=== PATIENT | male | born 1985 | race Caucasian/White ===

== ENCOUNTER 2022-05-07 10:40 | Inpatient (IN) | payer OTHER, MEDICAID, SELFPAY ==
[2022-05-07] VITALS (29 sets, daily range): BP systolic 117–156; BP diastolic 70–99; PULSE 73–106; RESP 17–26; TEMP 36.7–36.9; O2SAT 88–100; BMI 21.5
--- NOTE | 2022-05-07 10:09 | DI.CT.S_ITS ---
PROCEDURE: CT HEAD/BRAIN WO CON INDICATIONS: trauma TECHNIQUE: Noncontrast 4.5 mm thick angled axial sections acquired from the foramen magnum to the vertex, with coronal and sagittal reformats. For radiation dose reduction, the following was used: automated exposure control, adjustment of mA and/or kV according to patient size. COMPARISON: None. FINDINGS: Image quality: Excellent. CSF spaces: Basal cisterns are patent. No extra-axial fluid collections. Ventricles are normal in size and shape. Brain: No midline shift. No intracranial masses or hemorrhage. Villeda-white matter interface is normal. Skull and face: Calvarium and visualized facial bones are intact, without suspicious lesions. Sinuses: Visualized sinuses and mastoids are clear. IMPRESSION: No acute intracranial abnormality. Dictated by: Lv Blue D.O. on 05/07/2022 at 9:34 Approved by: Lv Blue D.O. on 05/07/2022 at 9:38
--- NOTE | 2022-05-07 10:09 | ED.ALCOHOL ---
HPI - Alcohol General Chief Complaint: Toxicology Problem Stated Complaint: seizure Time Seen by Provider: 05/07/22 11:10 History of Present Illness HPI narrative: This 37-year-old man comes in with alcohol related seizure today. He was camping with family and friends on the [facility]. He drink about a gal of hard liquor last night. He had a seizure this morning. He has never had a seizure previously. He says he felt himself shaking at the onset and then lost consciousness. Paramedics were called to the scene and found him to be postictal. He did break the left upper central incisor when he fell. He denies any other injuries. He says he drinks up to 2 gal of hard liquor daily for a very long time. He says it has been years since he went a week without any alcohol. He says he has a history of asthma but requires no current treatments for it. He denies any recent fever, cough, vomiting, melena, abdominal pain or other symptoms. Related Data Home Medications Medication Instructions Recorded Confirmed No Known Home Medications 05/07/22 05/07/22 Review of Systems Review of Systems Narrative: Complete review of systems is negative other than as noted. Patient History Social History Smoking Status: Current every day smoker Exam Narrative Exam Narrative: GENERAL: Alert, cooperative and in no distress. HEAD: Atraumatic. Normocephalic. EYES: Sclera are clear without icterus. Extraocular movements are full. ENT: No rhinorrhea. Oropharynx is moist. Mouth exam is benign. Broken left upper central incisor tooth 9. NECK: Supple. Full range of motion. CARDIOVASCULAR: Normal rate and rhythm without murmur gallop or rub. RESPIRATORY: Clear to auscultation. Breath sounds equal bilaterally. No wheezes, rales, or rhonchi. GASTROINTESTINAL: Abdomen soft, non-tender, nondistended. EXTREMITIES: No edema, full range of motion. No obvious trauma. BACK: Normal inspection, no CVA tenderness. NEURO: Nonfocal examination, normal speech, normal gait. SKIN: No rash or erythema of visible areas PSYCH: Normally oriented. Normal range of affect. Appropriate behavior Initial Vital Signs Initial Vital Signs: Vital Signs Temperature 98.4 F 05/07/22 10:00 Pulse Rate 88 05/07/22 10:00 Respiratory Rate 18 05/07/22 10:00 Blood Pressure 156/97 H 05/07/22 10:00 Pulse Oximetry 99 05/07/22 10:00 Oxygen Delivery Method 05/07/22 10:00 Course Orders Ordered: ED Orders 05/07/22 10:05 CBC Auto Diff [Complete Blood Count AUTO DIFF] Stat CMP [Comprehensive Metabolic Panel] Stat Ethanol (ETOH) Stat Lactate (Lactic Acid) Stat Prothrombin Time INR Stat 05/07/22 10:09 CT head/brain wo con Stat 05/07/22 10:10 COVID19 -Nasal RAPID/Pre-Proc Stat 05/07/22 10:13 EKG-12 Lead Stat Acetaminophen (Acetaminophen 325 Mg Tablet) 650 mg PO Q6HR PRN PRN Reason: Fever/Mild Pain (1-3) Chlordiazepoxide HCl (Chlordiazepoxide 25 Mg Capsule) 50 mg PO Q6HR MELQUIADES Enoxaparin Sodium (Enoxaparin 40 Mg/0.4 Ml Syringe) 40 mg SUBCUT DAILY MELQUIADES Folic Acid (Folic Acid 1 Mg Tablet) 1 mg PO DAILY MELQUIADES Multivitamins (Multivitamin 1 Tablet) 1 tab PO DAILY MELQUIADES Ondansetron HCl (Ondansetron 4 Mg/2 Ml Inj) 4 mg IV Q8HR PRN PRN Reason: Nausea And Vomiting Thiamine HCl (Thiamine 100 Mg Tablet) 100 mg PO DAILY MELQUIADES Stop: 05/11/22 09:01 Discontinued Medications Diazepam (Diazepam 10 Mg/2 Ml Syringe) 10 mg IV Q15MIN PRN PRN Reason: Alcohol Withdrawal Last Admin: 05/07/22 13:13 Dose: 10 mg Documented By: Admin: 05/07/22 10:53 Dose: 10 mg Documented By: MANGO Sodium Chloride (Normal Saline 0.9%) 1,000 mls @ 1,000 mls/hr IV BOLUS ONE Stop: 05/07/22 11:06 Last Infusion: 05/07/22 14:13 Dose: 0 mls/hr Documented By: Admin: 05/07/22 10:57 Dose: 1,000 mls/hr Documented By: MANGO Reevaluation(s) Reevaluation #1: The patient is tolerating diazepam well and this is controlling his symptoms nicely. Will admit for alcohol withdrawal seizure. Will also be admitting for acute alcoholic hepatitis Consultations Consultation #1: Dr. Du agrees to admit Vital Signs Vital signs: Vital Signs - 8 hr 05/07/22 10:00 05/07/22 10:27 05/07/22 10:30 Temperature 98.4 F Pulse Rate 88 87 86 Respiratory Rate 18 20 Blood Pressure 156/97 H Pulse Oximetry 99 88 L 100 Oxygen Delivery Method Room Air Oxygen Flow Rate 05/07/22 10:57 05/07/22 10:57 05/07/22 11:00 Temperature Pulse Rate 89 Respiratory Rate 20 Blood Pressure 139/94 H 147/92 H Pulse Oximetry 99 Oxygen Delivery Method Oxygen Flow Rate 05/07/22 11:00 05/07/22 11:15 05/07/22 11:15 Temperature Pulse Rate 88 81 Respiratory Rate 18 21 Blood Pressure 134/85 Pulse Oximetry 99 Oxygen Delivery Method Oxygen Flow Rate 05/07/22 11:30 05/07/22 11:30 05/07/22 11:45 Temperature Pulse Rate 79 Respiratory Rate 19 Blood Pressure 130/82 128/82 Pulse Oximetry Oxygen Delivery Method Oxygen Flow Rate 05/07/22 11:45 05/07/22 12:00 05/07/22 12:00 Temperature Pulse Rate 77 85 Respiratory Rate 19 18 Blood Pressure 136/84 Pulse Oximetry 97 98 Oxygen Delivery Method Oxygen Flow Rate 05/07/22 12:15 05/07/22 12:15 05/07/22 12:30 Temperature Pulse Rate 83 Respiratory Rate 18 Blood Pressure 141/84 H 143/86 H Pulse Oximetry 99 Oxygen Delivery Method Oxygen Flow Rate 05/07/22 12:30 05/07/22 12:45 05/07/22 12:45 Temperature Pulse Rate 84 88 Respiratory Rate 20 18 Blood Pressure 144/87 H Pulse Oximetry 98 98 Oxygen Delivery Method Oxygen Flow Rate 05/07/22 13:00 05/07/22 13:00 05/07/22 13:15 Temperature Pulse Rate 94 H Respiratory Rate 20 Blood Pressure 140/72 149/99 H Pulse Oximetry 98 Oxygen Delivery Method Oxygen Flow Rate 05/07/22 13:15 05/07/22 13:20 05/07/22 13:15 Temperature Pulse Rate 92 H Respiratory Rate 19 Blood Pressure 147/83 H 149/99 H Pulse Oximetry 97 Oxygen Delivery Method Oxygen Flow Rate 05/07/22 13:19 05/07/22 13:19 05/07/22 13:23 Temperature Pulse Rate 106 H Respiratory Rate 20 Blood Pressure 147/96 H 156/95 H Pulse Oximetry 96 Oxygen Delivery Method Oxygen Flow Rate 05/07/22 13:23 05/07/22 13:30 05/07/22 13:30 Temperature Pulse Rate 100 H 84 Respiratory Rate 20 21 Blood Pressure 142/83 H Pulse Oximetry 97 96 Oxygen Delivery Method Oxygen Flow Rate 05/07/22 13:45 05/07/22 13:45 05/07/22 14:00 Temperature Pulse Rate 80 Respiratory Rate 24 Blood Pressure 136/87 135/87 Pulse Oximetry 95 Oxygen Delivery Method Oxygen Flow Rate 05/07/22 14:00 05/07/22 14:15 05/07/22 14:15 Temperature Pulse Rate 80 84 Respiratory Rate 20 20 Blood Pressure 130/84 Pulse Oximetry 96 95 Oxygen Delivery Method Oxygen Flow Rate 05/07/22 14:19 Temperature 98.0 F Pulse Rate 89 Respiratory Rate 20 Blood Pressure 155/87 H Pulse Oximetry 98 Oxygen Delivery Method Oxygen Flow Rate 0 MDM - Alcohol Lab Data Result diagrams: 05/07/22 10:05 05/07/22 10:05 Labs: Lab Results 05/07/22 05/07/22 05/07/22 Range/Units 10:05 10:05 10:05 WBC 4.6 (4.5-11.0) X10^3/uL RBC 3.60 L (4.5-5.9) X10^6/uL Hgb 12.3 L (13.5-17.5) g/dL Hct 35.5 L (41-53) % MCV 98.6 (80-100) fL MCH 34.1 H (26-34) PG MCHC 34.6 (30-36) % RDW 13.4 (11.6-14.8) % Plt Count 93 L (150-400) X10^3/uL Neut % (Auto) 75.7 H (50-75) % Lymph % (Auto) 11.3 L (25-40) % Isabella % (Auto) 11.0 (3-14) % Eos % (Auto) 1.3 L (2-4) % Baso % (Auto) 0.7 (0-2) % Neut # (Auto) 3500 (6731-5045) /uL Lymph # (Auto) 500 L (5311-3934) /uL Isabella # (Auto) 500 (0-900) /uL Eos # (Auto) 100 (0-450) /uL Baso # (Auto) 0 (0-100) /uL PT 12.5 (10.1-12.7) SECONDS INR 1.1 (0.9-1.3) Sodium 135 L (137-145) mmol/L Potassium 3.1 L (3.4-5.1) mmol/L Chloride 101 (98-107) mmol/L Carbon Dioxide 22 (22-32) mmol/L BUN 3 L (9-20) mg/dL Creatinine 0.58 L (0.66-1.25) mg/dL Estimated GFR > 60 (>60) mL/min BUN/Creatinine Ratio 5.2 L (6-22) Glucose 99 (70-100) mg/dL Lactate (0.7-2.1) mmol/L Calcium 8.9 (8.4-10.2) mg/dL Total Bilirubin 1.9 H (0.2-1.3) mg/dL AST 300 H (17-59) IU/L ALT 166 H (<50) IU/L Alkaline Phosphatase 99 (38-126) U/L Total Protein 7.1 (6.3-8.2) g/dL Albumin 4.2 (3.5-5.0) g/dL Globulin 2.9 (1.7-4.1) g/dL Albumin/Globulin Ratio 1.4 (1.0-2.8) Ethyl Alcohol ( - 10) mg/dL SARS-CoV-2 (PCR) (Negative) 05/07/22 05/07/22 05/07/22 Range/Units 10:05 10:05 10:10 WBC (4.5-11.0) X10^3/uL RBC (4.5-5.9) X10^6/uL Hgb (13.5-17.5) g/dL Hct (41-53) % MCV (80-100) fL MCH (26-34) PG MCHC (30-36) % RDW (11.6-14.8) % Plt Count (150-400) X10^3/uL Neut % (Auto) (50-75) % Lymph % (Auto) (25-40) % Isabella % (Auto) (3-14) % Eos % (Auto) (2-4) % Baso % (Auto) (0-2) % Neut # (Auto) (0412-1907) /uL Lymph # (Auto) (3327-0473) /uL Isabella # (Auto) (0-900) /uL Eos # (Auto) (0-450) /uL Baso # (Auto) (0-100) /uL PT (10.1-12.7) SECONDS INR (0.9-1.3) Sodium (137-145) mmol/L Potassium (3.4-5.1) mmol/L Chloride (98-107) mmol/L Carbon Dioxide (22-32) mmol/L BUN (9-20) mg/dL Creatinine (0.66-1.25) mg/dL Estimated GFR (>60) mL/min BUN/Creatinine Ratio (6-22) Glucose (70-100) mg/dL Lactate 5.3 H* (0.7-2.1) mmol/L Calcium (8.4-10.2) mg/dL Total Bilirubin (0.2-1.3) mg/dL AST (17-59) IU/L ALT (<50) IU/L Alkaline Phosphatase (38-126) U/L Total Protein (6.3-8.2) g/dL Albumin (3.5-5.0) g/dL Globulin (1.7-4.1) g/dL Albumin/Globulin Ratio (1.0-2.8) Ethyl Alcohol 41 H ( - 10) mg/dL SARS-CoV-2 (PCR) Negative (Negative) 05/07/22 Range/Units 12:21 WBC (4.5-11.0) X10^3/uL RBC (4.5-5.9) X10^6/uL Hgb (13.5-17.5) g/dL Hct (41-53) % MCV (80-100) fL MCH (26-34) PG MCHC (30-36) % RDW (11.6-14.8) % Plt Count (150-400) X10^3/uL Neut % (Auto) (50-75) % Lymph % (Auto) (25-40) % Isabella % (Auto) (3-14) % Eos % (Auto) (2-4) % Baso % (Auto) (0-2) % Neut # (Auto) (0222-6986) /uL Lymph # (Auto) (7339-3691) /uL Isabella # (Auto) (0-900) /uL Eos # (Auto) (0-450) /uL Baso # (Auto) (0-100) /uL PT (10.1-12.7) SECONDS INR (0.9-1.3) Sodium (137-145) mmol/L Potassium (3.4-5.1) mmol/L Chloride (98-107) mmol/L Carbon Dioxide (22-32) mmol/L BUN (9-20) mg/dL Creatinine (0.66-1.25) mg/dL Estimated GFR (>60) mL/min BUN/Creatinine Ratio (6-22) Glucose (70-100) mg/dL Lactate 1.3 (0.7-2.1) mmol/L Calcium (8.4-10.2) mg/dL Total Bilirubin (0.2-1.3) mg/dL AST (17-59) IU/L ALT (<50) IU/L Alkaline Phosphatase (38-126) U/L Total Protein (6.3-8.2) g/dL Albumin (3.5-5.0) g/dL Globulin (1.7-4.1) g/dL Albumin/Globulin Ratio (1.0-2.8) Ethyl Alcohol ( - 10) mg/dL SARS-CoV-2 (PCR) (Negative) Point of Care Testing Glucose POC [address] scan - head: Radiologist's Impressoin: IMPRESSION:? ? No acute intracranial abnormality. ? ? Dictated by: Lv Blue D.O. on 05/07/2022 at 9:34 ? ? Approved by: Lv Blue D.O. on 05/07/2022 at 9:38 ? ECG Data Interpretation: ECG obtained at 10:13 a.m. sinus rhythm at a rate of 86 beats per minute. QTC is 426. No acute ST or T-wave change. MDM Narrative Medical decision making narrative: Results are back. No CT imaging evidence for dangerous head injury or other cause for seizure. I believe he has severe alcohol withdrawal. His CIWA current lease 9 after 10 mg of Valium. Laboratory data is significantly concerning for liver damage from alcohol consumption. I recommend hospitalization. The patient is considering this now. He is awake and alert and well-appearing at this time. Discharge Plan Departure Patient Disposition: Admitted As Inpatient Clinical Impression: Alcohol withdrawal seizure, Acute alcoholic hepatitis, Alcohol withdrawal syndrome Admit Date/Time: 05/07/22 14:49 Admit Provider: Harjit Du
[2022-05-07 10:13] LABS: Add Manual Diff / Slide Review NO; Basophils Absolute Auto 0 /uL (0-100); Basophils Percent Auto 0.7 % (0-2); Eosinophils Absolute Auto 100 /uL (0-450); Eosinophils Percent Auto 1.3 % (2-4); Hematocrit 35.5 % (41-53); Hemoglobin 12.3 g/dL (13.5-17.5); Lymphocytes Absolute Auto 500 /uL (1100-4500); Lymphocytes Percent Auto 11.3 % (25-40); Mean Corpuscular HGB Conc 34.6 % (30-36); Mean Corpuscular Hemoglobin 34.1 PG (26-34); Mean Corpuscular Volume 98.6 fL (80-100); Monocytes Absolute Auto 500 /uL (0-900); Neutrophils Absolute Auto 3500 /uL (1500-7000); Neutrophils Percent Auto 75.7 % (50-75); Platelet Count 93 X10^3/uL (150-400); Red Cell Distribution Width 13.4 % (11.6-14.8); White Blood Cell Count 4.6 X10^3/uL (4.5-11.0)
[2022-05-07 10:18] LABS: INR 1.1 (0.9-1.3); Prothrombin Time 12.5 SECONDS (10.1-12.7)
[2022-05-07 10:23] LABS: Alanine Aminotransferase 166 IU/L (<50); Albumin 4.2 g/dL (3.5-5.0); Albumin Globulin Ratio 1.4 (1.0-2.8); Alkaline Phosphatase 99 U/L (38-126); Aspartate Aminotransferase 300 IU/L (17-59); BUN Creatinine Ratio 5.2 (6-22); Bilirubin Total 1.9 mg/dL (0.2-1.3); Blood Urea Nitrogen 3 mg/dL (9-20); Calcium 8.9 mg/dL (8.4-10.2); Carbon Dioxide 22 mmol/L (22-32); Chloride 101 mmol/L (98-107); Estimated Glomerular Filt Rate > 60 mL/min (>60); Globulin 2.9 g/dL (1.7-4.1); Glucose 99 mg/dL (70-100); HEMOLYSIS < 15 (0-50); Potassium 3.1 mmol/L (3.4-5.1); Sodium 135 mmol/L (137-145); Total Protein 7.1 g/dL (6.3-8.2)
[2022-05-07 10:24] LABS: Ethanol (ETOH) 41 mg/dL
[2022-05-07 10:32] LABS: Lactate (Lactic Acid) 5.3 mmol/L (0.7-2.1)
[2022-05-07 10:41] LABS: COVID19 -Nasal RAPID Negative (Negative)
[2022-05-07] MEDS: diazePAM 10 MG/2 ML SYRINGE IV ×3 (10:53→16:35)
[2022-05-07] MEDS: SODIUM CHLORIDE 0.9% 1,000 ML 1000 ML IV (10:57)
[2022-05-07 12:11] LABS: Reflexed Lactate in 2 Hours Y
[2022-05-07 12:37] LABS: Lactate 2HR (Lactic Acid Rflx) 1.3 mmol/L (0.7-2.1)
--- NOTE | 2022-05-07 15:22 | P.HP_ITS ---
History of Present Illness History of Present Illness Date Patient Seen: 05/07/22 Time Patient Seen: 15:22 Chief complaint: seizure Narrative: This is a 37-year-old male with a past medical history of alcohol use who was brought into the emergency room after a seizure. Patient had been camping with his family and trying to cut down on his alcohol use. He was told to slowly taper his alcohol use. Over the past couple of days he has been shaky and sweaty when he had not been drinking. He usually drinks about a 5th of hard liquor daily, and had been slowly cutting back on that over the past couple of days. He had a shot of alcohol around 6:00 a.m. this morning, but then was sitting on a chair when he had a witnessed seizure. At his camp site was called and he was put on his side. The patient was told that his seizure lasted approximately 4 minutes. He has no recollection of the event. He did not hit his head, and he denies any car, nausea, or vomiting. He denies any fever, chills, chest pain, shortness of breath, abdominal pain, lower extremity edema. In the emergency room, the patient was mildly hypertensive but through nerves vital signs are unremarkable. Laboratory evaluation revealed a mild anemia with a hemoglobin of 12.3, thrombocytopenia with platelet count of 93. Chemistries revealed a mild hypokalemia with a potassium of 3.1, total bilirubin of 1.9, AST of 300, ALT 166, and an alcohol level of 41. COVID he testing was negative. CT without contrast of his head was unremarkable and showed no evidence of acute hemorrhage. Patient was admitted to the hospitalist service for further management of an alcohol withdrawal seizure Patient History Medical History Alcohol use Surgical History No pertinent past surgical history Family & Social History Family History Mother Congestive heart failure Alcohol use Father Diabetes mellitus Safety & Behavioral: Feels Safe in Current Yes Environment Been Physically Hurt or No Threatened By a Person Suicidal Ideation Description None Suicide Plan Description No Plan Tobacco & Substance use: Smoking Status Current every day smoker alcohol intake frequency 3 or more drinks per day Meds Home Medications and Allergies Home Medications Medication Instructions Recorded Confirmed Type No Known Home Medications 05/07/22 05/07/22 History Allergies Allergy/AdvReac Type Severity Reaction Status Date / Time No Known Drug Allergies Allergy Verified 05/07/22 15:34 Review of Systems Review of Systems Narrative: All other systems reviewed with the patient and are negative unless otherwise stated. Exam Vital Signs (past 8 hours): - 05/07/22 10:00 05/07/22 10:27 05/07/22 10:30 Temperature 98.4 F Pulse Rate 88 87 86 Respiratory Rate 18 20 Blood Pressure 156/97 H Pulse Oximetry 99 88 L 100 Oxygen Delivery Method Room Air Oxygen Flow Rate 05/07/22 10:57 05/07/22 10:57 05/07/22 11:00 Temperature Pulse Rate 89 Respiratory Rate 20 Blood Pressure 139/94 H 147/92 H Pulse Oximetry 99 Oxygen Delivery Method Oxygen Flow Rate 05/07/22 11:00 05/07/22 11:15 05/07/22 11:15 Temperature Pulse Rate 88 81 Respiratory Rate 18 21 Blood Pressure 134/85 Pulse Oximetry 99 Oxygen Delivery Method Oxygen Flow Rate 05/07/22 11:30 05/07/22 11:30 05/07/22 11:45 Temperature Pulse Rate 79 Respiratory Rate 19 Blood Pressure 130/82 128/82 Pulse Oximetry Oxygen Delivery Method Oxygen Flow Rate 05/07/22 11:45 05/07/22 12:00 05/07/22 12:00 Temperature Pulse Rate 77 85 Respiratory Rate 19 18 Blood Pressure 136/84 Pulse Oximetry 97 98 Oxygen Delivery Method Oxygen Flow Rate 05/07/22 12:15 05/07/22 12:15 05/07/22 12:30 Temperature Pulse Rate 83 Respiratory Rate 18 Blood Pressure 141/84 H 143/86 H Pulse Oximetry 99 Oxygen Delivery Method Oxygen Flow Rate 05/07/22 12:30 05/07/22 12:45 05/07/22 12:45 Temperature Pulse Rate 84 88 Respiratory Rate 20 18 Blood Pressure 144/87 H Pulse Oximetry 98 98 Oxygen Delivery Method Oxygen Flow Rate 05/07/22 13:00 05/07/22 13:00 05/07/22 13:15 Temperature Pulse Rate 94 H Respiratory Rate 20 Blood Pressure 140/72 149/99 H Pulse Oximetry 98 Oxygen Delivery Method Oxygen Flow Rate 05/07/22 13:15 05/07/22 13:20 05/07/22 13:15 Temperature Pulse Rate 92 H Respiratory Rate 19 Blood Pressure 147/83 H 149/99 H Pulse Oximetry 97 Oxygen Delivery Method Oxygen Flow Rate 05/07/22 13:19 05/07/22 13:19 05/07/22 13:23 Temperature Pulse Rate 106 H Respiratory Rate 20 Blood Pressure 147/96 H 156/95 H Pulse Oximetry 96 Oxygen Delivery Method Oxygen Flow Rate 05/07/22 13:23 05/07/22 13:30 05/07/22 13:30 Temperature Pulse Rate 100 H 84 Respiratory Rate 20 21 Blood Pressure 142/83 H Pulse Oximetry 97 96 Oxygen Delivery Method Oxygen Flow Rate 05/07/22 13:45 05/07/22 13:45 05/07/22 14:00 Temperature Pulse Rate 80 Respiratory Rate 24 Blood Pressure 136/87 135/87 Pulse Oximetry 95 Oxygen Delivery Method Oxygen Flow Rate 05/07/22 14:00 05/07/22 14:15 05/07/22 14:15 Temperature Pulse Rate 80 84 Respiratory Rate 20 20 Blood Pressure 130/84 Pulse Oximetry 96 95 Oxygen Delivery Method Oxygen Flow Rate 05/07/22 14:19 Temperature 98.0 F Pulse Rate 89 Respiratory Rate 20 Blood Pressure 155/87 H Pulse Oximetry 98 Oxygen Delivery Method Oxygen Flow Rate 0 Oxygen Delivery Method Room Air Oxygen Flow Rate 0 Narrative Exam Narrative: General:? Patient is well developed and well nourished, in no distress at this time. HEENT:? Normocephalic, atraumatic, extraocular muscles intact, oral pharynx is clear and mucous membranes are moist. Neck: supple and symmetric, trachea is midline, no cervical adenopathy. Negative for JVD Chest:? Normal AP diameter and contour without kyphoscoliosis, no tachypnea, equal chest rise bilaterally. Lungs:? CTA b/l no wheezing rhonchi or rales. Cardio:?RRR no m/r/g. Abdomen: S NT ND. mild hepatomegaly. Musculoskeletal:? Muscle strength and tone are equal within normal limits, no deformity. Extremities: No edema or joint effusions. No cyanosis or clubbing. Skin:? Pale,? Warm to touch,dry and intact without rashes, ulcerations or petechiae.? Neuro:? Alert and orientated x3,? sensation to touch intact in all extremities, no gross deficits noted of cranial nerves. + tremulousness, mild and more prominent tongue fasciculations. No asterixis. Psych:? Patient has a well-kept appearance, appropriate affect, mental status attitude thought context and judgment are appropriate for age. Objective ECG Impression: Normal sinus rhythm as interpreted by me Labs Result Diagrams: 05/07/22 10:05 05/07/22 10:05 Labs: Laboratory Results - last 24 hr 05/07/22 05/07/22 05/07/22 10:05 10:05 10:05 WBC 4.6 RBC 3.60 L Hgb 12.3 L Hct 35.5 L MCV 98.6 MCH 34.1 H MCHC 34.6 RDW 13.4 Plt Count 93 L Neut % (Auto) 75.7 H Lymph % (Auto) 11.3 L Randolph % (Auto) 11.0 Eos % (Auto) 1.3 L Baso % (Auto) 0.7 Neut # (Auto) 3500 Lymph # (Auto) 500 L Randolph # (Auto) 500 Eos # (Auto) 100 Baso # (Auto) 0 PT 12.5 INR 1.1 Sodium 135 L Potassium 3.1 L Chloride 101 Carbon Dioxide 22 BUN 3 L Creatinine 0.58 L Estimated GFR > 60 BUN/Creatinine Ratio 5.2 L Glucose 99 Lactate Calcium 8.9 Total Bilirubin 1.9 H AST 300 H ALT 166 H Alkaline Phosphatase 99 Total Protein 7.1 Albumin 4.2 Globulin 2.9 Albumin/Globulin Ratio 1.4 Ethyl Alcohol SARS-CoV-2 (PCR) 05/07/22 05/07/22 05/07/22 10:05 10:05 10:10 WBC RBC Hgb Hct MCV MCH MCHC RDW Plt Count Neut % (Auto) Lymph % (Auto) Randolph % (Auto) Eos % (Auto) Baso % (Auto) Neut # (Auto) Lymph # (Auto) Randolph # (Auto) Eos # (Auto) Baso # (Auto) PT INR Sodium Potassium Chloride Carbon Dioxide BUN Creatinine Estimated GFR BUN/Creatinine Ratio Glucose Lactate 5.3 H* Calcium Total Bilirubin AST ALT Alkaline Phosphatase Total Protein Albumin Globulin Albumin/Globulin Ratio Ethyl Alcohol 41 H SARS-CoV-2 (PCR) Negative 05/07/22 12:21 WBC RBC Hgb Hct MCV MCH MCHC RDW Plt Count Neut % (Auto) Lymph % (Auto) Randolph % (Auto) Eos % (Auto) Baso % (Auto) Neut # (Auto) Lymph # (Auto) Randolph # (Auto) Eos # (Auto) Baso # (Auto) PT INR Sodium Potassium Chloride Carbon Dioxide BUN Creatinine Estimated GFR BUN/Creatinine Ratio Glucose Lactate 1.3 Calcium Total Bilirubin AST ALT Alkaline Phosphatase Total Protein Albumin Globulin Albumin/Globulin Ratio Ethyl Alcohol SARS-CoV-2 (PCR) Assessment & Plan Assessment & Plan narrative: 1. Alcohol withdrawal seizure - EtOH level 44 in the ER. High likelihood of worsening withdrawal symptoms given last drink was at 6am. - continue librium 50 mg q6 hours to start - seizure precautions - continue CIWA protocol with PO ativan and IV valium as needed (given shortage of IV lorazepam) - if worsening, consider precedex and transfer to ICU 2. Alcoholic hepatitis - DF of 8.8. No indication for steroids at this time. - patient is motivated for cessation at this time, care management consultation for outpatient resources. - counseled on disease progression, and counseled on cessation. - continue to follow liver function daily. - abdominal US ordered, hepatitis serologies ordered as well. Code: Full as discussed with the patient. Surrogate decision maker he states is his mother Dispo: Patient is admitted under inpatient status as his stay is expected to exceed 2 midnights I have utilized all available immediate resources to obtain, update, or review the patient's current medications. DVT: Lovenox Time Spent With Patient Critical Care time: I spent a total of [] minutes of critical care time on this patient's care today; this time is exclusive of procedural time. Quality MIPS - Admit I confirm the patient?s Advance Care Plan is present, Code status is documented, Surrogate decision maker is in patient?s record [If Yes, STOP here]: Yes
[2022-05-07] MEDS: chlordiazePOXIDE 25 MG CAPSULE 50 MG PO ×3 (16:13→23:50)
[2022-05-08] VITALS (9 sets, daily range): BP systolic 109–130; BP diastolic 66–86; PULSE 72–86; RESP 18–26; TEMP 36.2–37; O2SAT 97–100
[2022-05-08 05:17] LABS: Add Manual Diff / Slide Review NO; Basophils Absolute Auto 0 /uL (0-100); Basophils Percent Auto 0.5 % (0-2); Eosinophils Absolute Auto 100 /uL (0-450); Eosinophils Percent Auto 3.2 % (2-4); Hemoglobin 12.5 g/dL (13.5-17.5); Lymphocytes Absolute Auto 700 /uL (1100-4500); Lymphocytes Percent Auto 18.1 % (25-40); Mean Corpuscular HGB Conc 34.6 % (30-36); Mean Corpuscular Hemoglobin 34.2 PG (26-34); Mean Corpuscular Volume 98.7 fL (80-100); Monocytes Absolute Auto 500 /uL (0-900); Monocytes Percent Auto 12.8 % (3-14); Neutrophils Absolute Auto 2600 /uL (1500-7000); Neutrophils Percent Auto 65.4 % (50-75); Platelet Count 106 X10^3/uL (150-400); Red Blood Cell Count 3.65 X10^6/uL (4.5-5.9); Red Cell Distribution Width 13.3 % (11.6-14.8)
[2022-05-08 05:27] LABS: Alanine Aminotransferase 154 IU/L (<50); Albumin 3.8 g/dL (3.5-5.0); Albumin Globulin Ratio 1.3 (1.0-2.8); Alkaline Phosphatase 84 U/L (38-126); Aspartate Aminotransferase 198 IU/L (17-59); BUN Creatinine Ratio 8.8 (6-22); Blood Urea Nitrogen 5 mg/dL (9-20); Calcium 8.7 mg/dL (8.4-10.2); Carbon Dioxide 29 mmol/L (22-32); Chloride 100 mmol/L (98-107); Estimated Glomerular Filt Rate > 60 mL/min (>60); Glucose 90 mg/dL (70-100); HEMOLYSIS 30 (0-50); Potassium 3.4 mmol/L (3.4-5.1); Sodium 136 mmol/L (137-145); Total Protein 6.8 g/dL (6.3-8.2)
[2022-05-08] MEDS: chlordiazePOXIDE 25 MG CAPSULE 50 MG PO (05:50)
--- NOTE | 2022-05-08 06:02 | PC.NURSE ---
End of shift note. Care of patient from [id number]. Patient slept well during the night. Easily awakens, and is oriented to person, place and situation. CIWAs have been zero through the night. Telemetry: 70s. Has been NPO since for abd US scheduled for this am.
--- NOTE | 2022-05-08 07:00 | DI.US.S_ITS ---
PROCEDURE: US ABDOMEN LIMITED INDICATIONS: alcoholic hepatitis TECHNIQUE: Real-time scanning was performed of the abdominal and retroperitoneal organs, with image documentation. COMPARISON: None. FINDINGS: Liver: The liver measures 18.9 cm in length and demonstrates increased echogenicity. Gallbladder: The gallbladder wall measures 1.1 mm in diameter. Sludge is present within the fundus. No pericholecystic fluid or sonographic Gilbert sign. Biliary ducts: Intrahepatic bile ducts are non-dilated. Extrahepatic bile duct caliber measures 3.1 mm. Normal is 6-7 mm or less in diameter, or 10 mm or less post-cholecystectomy. Pancreas: Visualized portions of the pancreas are sonographically normal. IMPRESSION: 1. Increased hepatic echogenicity noted likely related to fatty infiltration of the liver but other sources of hepatocellular disease cannot be excluded. 2. Gallbladder sludge present. No cholelithiasis or findings to suggest choledocholithiasis or acute cholecystitis. Dictated by: Shayna Romeo M.D. on 05/08/2022 at 8:10 Approved by: Shayna Romeo M.D. on 05/08/2022 at 8:14
[2022-05-08] MEDS: FOLIC ACID 1 MG TABLET PO (09:33)
[2022-05-08] MEDS: MULTIVITAMIN 1 TABLET 1 TAB PO (09:33)
[2022-05-08] MEDS: THIAMINE 100 MG TABLET PO (09:33)
[2022-05-08] MEDS: POTASSIUM CHLORIDE 20 MEQ TAB 40 MEQ PO (09:33)
[2022-05-08] MEDS: ENOXAPARIN 40 MG/0.4 ML SYRINGE SUBCUT (09:34)
[2022-05-08] MEDS: chlordiazePOXIDE 25 MG CAPSULE PO ×2 (11:32→18:03)
--- NOTE | 2022-05-08 13:33 | CM.DANOTE ---
Initial Discharge Assessment Note: 37 year old single male admitted yesterday pm via ambulance with diagnosis of witnessed seizure and lost consciousness while camping on the [facility] with his mother and brother. He broke left upper central incisor when he fell. He is admitted with ETOH withdrawal sx and alcohol related hepatitis. He stated he has been trying to cut back on ETOH. [place] protocol. He lives with his mother and brother (both recovering alcoholics) in [facility]. He recently quit his job and is looking, he states. He does not have a car and uses an e-bike for transportation. He states his mother and brother are still camping on [facility] til the Sunday and if he discharges prior, he plans to return to camping. He would take ferry and family would pick him up on other side. He would need [employer] to ferry, he states he has money for ferry but need to verify closer to discharge. Offered alcohol cessation resources locally. He lives in [place]. His mother and brother are recovering alcoholics go to and he states he will start going and wants to stop. Plan: Follow closely for needs. Address any further etoh recovery needs. Help arrange transportation to [facility] upon discharge. ERNIE Discharge Planning/Care Management CM Discharge Assessment Start: 05/08/22 13:28 Freq: Status: Active Protocol: Document 05/08/22 13:29 (Rec: 05/08/22 13:32 [id number]) Discharge Planning Assessment Assigned County Coroner Nurys Ramon RN, DCP Advance Directives? No History Provided By Patient Prior Living Arrangements Apartment/Condo Household Members family Comment mother and brother Type of transporation used prior to Relies on Others admit Comment has license, no car. Independent with ADL's Yes Is patient alert and oriented? Yes Caregiver for Another No Barriers to Discharge No Discharge Plan Home Transportation Arrangement Mother and brother will transport via private vehicle. Additional Comment Offered local ETOH resources for patient but he is from out of area, [place]. He states both his mother and brother are recovering alcoholics and go to and he will try to go . Review Status In Process Next Review Type Continued Stay Review
--- NOTE | 2022-05-08 15:58 | P.PN_ITS ---
Subjective Subjective Date Patient Seen: 05/08/22 Interval history: He is doing quite well today. Somewhat fatigued but minimal shakiness or tremors. Librium dose was reduced this afternoon. Exam Vital Signs (past 8 hours): - 05/08/22 08:00 05/08/22 08:30 05/08/22 11:54 Temperature 98.0 F 98.4 F Pulse Rate 78 86 Respiratory Rate 20 26 H Blood Pressure 130/84 120/81 Pulse Oximetry 99 99 Oxygen Delivery Method Room Air Oxygen Flow Rate 0 0 Oxygen Delivery Method Room Air Oxygen Flow Rate 0 Narrative Exam Narrative: General:? Patient is well developed and well nourished, in no distress at this time. HEENT:? Normocephalic, atraumatic, extraocular muscles intact, oral pharynx is clear and mucous membranes are moist. Neck: supple and symmetric, trachea is midline, no cervical adenopathy. Negative for JVD Chest:? Normal AP diameter and contour without kyphoscoliosis, no tachypnea, equ al chest rise bilaterally. Lungs:? CTA b/l no wheezing rhonchi or rales. Cardio:?RRR no m/r/g. Abdomen: S NT ND. mild hepatomegaly. Musculoskeletal:? Muscle strength and tone are equal within normal limits, no deformity. Extremities: No edema or joint effusions. No cyanosis or clubbing. Skin:? Pale,? Warm to touch,dry and intact without rashes, ulcerations or petechiae.? Neuro:? Alert and orientated x3,? sensation to touch intact in all extremities, no gross deficits noted of cranial nerves. + tremulousness, mild and more prominent tongue fasciculations. No asterixis. Psych:? Patient has a well-kept appearance, appropriate affect, mental status attitude thought context and judgment are appropriate for age. Objective Labs Result Diagrams: 05/08/22 05:00 05/08/22 05:00 Labs: Laboratory Results - last 24 hr 05/08/22 05/08/22 05:00 05:00 WBC 4.0 L RBC 3.65 L Hgb 12.5 L Hct 36.0 L MCV 98.7 MCH 34.2 H MCHC 34.6 RDW 13.3 Plt Count 106 L Neut % (Auto) 65.4 Lymph % (Auto) 18.1 L [place] % (Auto) 12.8 Eos % (Auto) 3.2 Baso % (Auto) 0.5 Neut # (Auto) 2600 Lymph # (Auto) 700 L [place] # (Auto) 500 Eos # (Auto) 100 Baso # (Auto) 0 Sodium 136 L Potassium 3.4 Chloride 100 Carbon Dioxide 29 BUN 5 L Creatinine 0.57 L Estimated GFR > 60 BUN/Creatinine Ratio 8.8 Glucose 90 Calcium 8.7 Total Bilirubin 2.0 H AST 198 H ALT 154 H Alkaline Phosphatase 84 Total Protein 6.8 Albumin 3.8 Globulin 3.0 Albumin/Globulin Ratio 1.3 PFSH Medical History Alcohol use Surgical History No pertinent past surgical history Family History Mother Congestive heart failure Alcohol use Father Diabetes mellitus Social History household members: family Smoking Status: Current every day smoker Assessment & Plan Assessment & Plan narrative: 1. Alcohol withdrawal seizure - EtOH level 44 in the ER. High likelihood of worsening withdrawal symptoms given last drink was at 6am yesterday. - continued librium 50 mg q6 hours to start, reduced to 25 mg q6 hours today. If okay tomorrow may be able to go home with another day of home medications. - seizure precautions - continue CIWA protocol with PO ativan and IV valium as needed (given shortage of IV lorazepam) - if worsening, consider precedex and transfer to ICU 2. Alcoholic hepatitis - DF of 8.8 on admission. No indication for steroids at this time. Similar labs today. - patient is motivated for cessation at this time, care management consultation for outpatient resources. - counseled on disease progression, and counseled on cessation. - continue to follow liver function daily. - abdominal US ordered with hepatomegaly. - hepatitis serologies pending. Code: Full as discussed with the patient. Surrogate decision maker he states is his mother Dispo: Plan for discharge home, possibly as soon as tomorrow if okay on small amounts of librium. I have utilized all available immediate resources to obtain, update, or review the patient's current medications. DVT: Lovenox Time Spent With Patient Critical Care time: I spent a total of [] minutes of critical care time on this patient's care today; this time is exclusive of procedural time.
[2022-05-08 16:54] LABS: Hepatitis B Surface Antigen NEGATIVE s/c (NEGATIVE)
[2022-05-08 17:30] LABS: Hep C Virus Ab w/Reflex Quant NEGATIVE s/c (NEGATIVE)
--- NOTE | 2022-05-08 19:37 | PC.NURSE ---
Patient pleasant and cooperative today. CIWA remaining at (4) today without any new complaints. Librium taper given as ordered per MD, patient tolerating well. Patient states he anticipates discharge tomorrow back to camping with his parents. Call light within reach. Seizure precautions in place.
[2022-05-09] VITALS: BP 106/68; PULSE 70; RESP 18; TEMP 36.6; O2SAT 97
[2022-05-09 00:08] LABS: Hepatitis B Core Antibody Negative (Negative)
[2022-05-09] MEDS: chlordiazePOXIDE 25 MG CAPSULE PO ×2 (00:15→06:08)
[2022-05-09 03:22] VITALS: BP 110/66; PULSE 76; RESP 18; TEMP 36.4; O2SAT 97
[2022-05-09 03:30] VITALS: O2SAT 97
[2022-05-09 05:27] LABS: Add Manual Diff / Slide Review NO; Basophils Absolute Auto 0 /uL (0-100); Basophils Percent Auto 0.6 % (0-2); Eosinophils Absolute Auto 200 /uL (0-450); Eosinophils Percent Auto 4.4 % (2-4); Hematocrit 37.4 % (41-53); Lymphocytes Absolute Auto 700 /uL (1100-4500); Lymphocytes Percent Auto 19.6 % (25-40); Mean Corpuscular HGB Conc 34.7 % (30-36); Mean Corpuscular Hemoglobin 34.3 PG (26-34); Mean Corpuscular Volume 98.9 fL (80-100); Monocytes Absolute Auto 500 /uL (0-900); Monocytes Percent Auto 14.2 % (3-14); Neutrophils Absolute Auto 2100 /uL (1500-7000); Neutrophils Percent Auto 61.2 % (50-75); Platelet Count 127 X10^3/uL (150-400); Red Blood Cell Count 3.78 X10^6/uL (4.5-5.9); Red Cell Distribution Width 13.4 % (11.6-14.8); White Blood Cell Count 3.5 X10^3/uL (4.5-11.0)
[2022-05-09 05:28] LABS: Alanine Aminotransferase 134 IU/L (<50); Albumin 3.9 g/dL (3.5-5.0); Albumin Globulin Ratio 1.3 (1.0-2.8); Alkaline Phosphatase 90 U/L (38-126); Aspartate Aminotransferase 151 IU/L (17-59); BUN Creatinine Ratio 10.3 (6-22); Bilirubin Total 1.4 mg/dL (0.2-1.3); Blood Urea Nitrogen 6 mg/dL (9-20); Calcium 9.2 mg/dL (8.4-10.2); Carbon Dioxide 30 mmol/L (22-32); Chloride 102 mmol/L (98-107); Estimated Glomerular Filt Rate > 60 mL/min (>60); Glucose 111 mg/dL (70-100); HEMOLYSIS < 15 (0-50); Potassium 3.6 mmol/L (3.4-5.1); Sodium 138 mmol/L (137-145); Total Protein 6.9 g/dL (6.3-8.2)
[2022-05-09 07:00] VITALS: O2SAT 97
[2022-05-09 08:00] VITALS: BP 128/82; PULSE 83; RESP 21; TEMP 36.1; O2SAT 100
--- NOTE | 2022-05-09 08:10 | PM.DS.1 ---
History of Present Illness History of Present Illness Date Patient Seen: 05/09/22 Chief complaint: seizure Narrative: This is a 37-year-old male with a past medical history of alcohol use who was brought into the emergency room after a seizure. Patient had been camping with his family and trying to cut down on his alcohol use. He was told to slowly taper his alcohol use. Over the past couple of days he has been shaky and sweaty when he had not been drinking. He usually drinks about a 5th of hard liquor daily, and had been slowly cutting back on that over the past couple of days. He had a shot of alcohol around 6:00 a.m. this morning, but then was sitting on a chair when he had a witnessed seizure. At his camp site was called and he was put on his side. The patient was told that his seizure lasted approximately 4 minutes. He has no recollection of the event. He did not hit his head, and he denies any car, nausea, or vomiting. He denies any fever, chills, chest pain, shortness of breath, abdominal pain, lower extremity edema. In the emergency room, the patient was mildly hypertensive but through nerves vital signs are unremarkable. Laboratory evaluation revealed a mild anemia with a hemoglobin of 12.3, thrombocytopenia with platelet count of 93. Chemistries revealed a mild hypokalemia with a potassium of 3.1, total bilirubin of 1.9, AST of 300, ALT 166, and an alcohol level of 41. COVID he testing was negative. CT without contrast of his head was unremarkable and showed no evidence of acute hemorrhage. Patient was admitted to the hospitalist service for further management of an alcohol withdrawal seizure Discharge Providers Provider Date of admission: 05/07/22 14:49 Discharge Date: 05/09/22 Consults: 05/07/22 14:57 Consult to Rn Cardiovascular Routine Comment: Discharge provider: Harjit Du DO Summary Hospital Course Discharge Diagnosis: 1. Alcohol withdrawal seizure 2. Alcoholic hepatitis Hospital Course: This is a 37-year-old male who was admitted after an alcohol withdrawal seizure. He was started on a Librium taper and rapidly titrated off with minimal withdrawal symptoms. He also had a mild alcoholic hepatitis which slightly the course of admission with alcohol cessation. He required minimal additional benzodiazepines with his continued Librium, and he had minimal continued withdrawal symptoms on hospital day 2. He was discharged with an additional day of Librium taper to complete at home. He was counseled on alcohol cessation and was offered cessation resources by care management. Time Spent with Patient Time spent: Greater than 30 minutes Exam Vital Signs (past 8 hours): - 05/09/22 03:22 05/09/22 03:30 Temperature 97.6 F Pulse Rate 76 Respiratory Rate 18 Blood Pressure 110/66 Pulse Oximetry 97 97 Oxygen Delivery Method Room Air Oxygen Flow Rate 0 0 Oxygen Delivery Method Room Air Oxygen Flow Rate 0 Narrative Exam Narrative: General:? Patient is well developed and well nourished, in no distress at this time. HEENT:? Normocephalic, atraumatic, extraocular muscles intact, oral pharynx is clear and mucous membranes are moist. Neck: supple and symmetric, trachea is midline, no cervical adenopathy. Negative for JVD Chest:? Normal AP diameter and contour without kyphoscoliosis, no tachypnea, equal chest rise bilaterally. Lungs:? CTA b/l no wheezing rhonchi or rales. Cardio:?RRR no m/r/g. Abdomen: S NT ND. mild hepatomegaly. Musculoskeletal:? Muscle strength and tone are equal within normal limits, no deformity. Extremities: No edema or joint effusions. No cyanosis or clubbing. Skin:? Pale,? Warm to touch,dry and intact without rashes, ulcerations or petechiae.? Neuro:? Alert and orientated x3,? sensation to touch intact in all extremities, no gross deficits noted of cranial nerves. no tremulousness or tongue fasciculations. Psych:? Patient has a well-kept appearance, appropriate affect, mental status attitude thought context and judgment are appropriate for age. Objective Labs Result Diagrams: 05/09/22 04:48 05/09/22 04:48 Labs: Laboratory Results - last 24 hr 05/07/22 05/08/22 05/09/22 10:05 05:00 04:48 WBC 3.5 L RBC 3.78 L Hgb 13.0 L Hct 37.4 L MCV 98.9 MCH 34.3 H MCHC 34.7 RDW 13.4 Plt Count 127 L Neut % (Auto) 61.2 Lymph % (Auto) 19.6 L [place] % (Auto) 14.2 H Eos % (Auto) 4.4 H Baso % (Auto) 0.6 Neut # (Auto) 2100 Lymph # (Auto) 700 L [place] # (Auto) 500 Eos # (Auto) 200 Baso # (Auto) 0 Sodium Potassium Chloride Carbon Dioxide BUN Creatinine Estimated GFR BUN/Creatinine Ratio Glucose Calcium Total Bilirubin AST ALT Alkaline Phosphatase Total Protein Albumin Globulin Albumin/Globulin Ratio Hep Bs Antigen Negative Hep B Core Total Ab Negative Hepatitis C Antibody Negative 05/09/22 04:48 WBC RBC Hgb Hct MCV MCH MCHC RDW Plt Count Neut % (Auto) Lymph % (Auto) [place] % (Auto) Eos % (Auto) Baso % (Auto) Neut # (Auto) Lymph # (Auto) [place] # (Auto) Eos # (Auto) Baso # (Auto) Sodium 138 Potassium 3.6 Chloride 102 Carbon Dioxide 30 BUN 6 L Creatinine 0.58 L Estimated GFR > 60 BUN/Creatinine Ratio 10.3 Glucose 111 H Calcium 9.2 Total Bilirubin 1.4 H AST 151 H ALT 134 H Alkaline Phosphatase 90 Total Protein 6.9 Albumin 3.9 Globulin 3.0 Albumin/Globulin Ratio 1.3 Hep Bs Antigen Hep B Core Total Ab Hepatitis C Antibody [facility] Medical History Alcohol use Surgical History No pertinent past surgical history Family History Mother Congestive heart failure Alcohol use Father Diabetes mellitus Social History household members: family Smoking Status: Current every day smoker Discharge Plan Discharge Plan Patient Disposition: Home Provider Discharge Comment: You were admitted to the hospital after an alcohol withdrawal seizure. Continue medication taper at home, take 1 pill 8 hours apart for 3 total doses then stop. Please follow up with a primary care provider if you have one, or I recommend you establish care if you don't. Let us know if you'd like any additional resources to help with cessation of alcohol. Discharge orders & Medications Prescriptions: New chlordiazepoxide HCl 25 mg capsule 25 mg PO TID 1 Days Qty: 3 0RF Follow up/Referrals: Miscellaneous,DoctorMD [Non-Staff] - Diet/Activity/Treatments Diet: Diet as Tolerated Activity: As tolerated Visit Report/Discharge Packet Instructions: DI for Drug or Alcohol Withdrawal, Chlordiazepoxide
[2022-05-09 08:39] LABS: Hepatitis B Surf Ab Qualitativ Reactive (.)
[2022-05-09] MEDS: FOLIC ACID 1 MG TABLET PO (09:32)
[2022-05-09] MEDS: THIAMINE 100 MG TABLET PO (09:32)
[2022-05-09] MEDS: MULTIVITAMIN 1 TABLET 1 TAB PO (09:32)
== END 2022-05-09 10:30 | disposition home or self-care (01) | DRG 775 ==
LOC: ED 14:34 → ICU 05-08 11:25 → AC 05-10 15:03
PROVIDERS: Admitting Provider Internal Medicine; Emergency Provider Family Medicine Addiction Medicine; Referring Provider Family Medicine Addiction Medicine; Visit Provider Internal Medicine
DX: F10.139 Alcohol abuse with withdrawal, unspecified (principal); G40.89 Other seizures; K70.10 Alcoholic hepatitis without ascites; F17.210 Nicotine dependence, cigarettes, uncomplicated; Y90.2 Blood alcohol level of 40-59 mg/100 ml; Z20.822 Contact with and (suspected) exposure to COVID-19
CPT/HCPCS: 36415; 70450; 76705; 80053; 80320; 83605; 85025; 85610; 86704; 86706; 86803; 87340; 87635; 93005; 96374; 99284; C9803; J1650; J3360